=== PATIENT | male | born 1955 | race Caucasian/White ===

== ENCOUNTER → 2018-01-12 | Outpatient (CLI) | payer OTHER ==
[~2018-01-12] MED LIST: ADJUSTABLE COMM1 MIS; BENZ100 PO; LISI-587 PO; LOSA100T2 PO; MOBI15TA PO; ROBIACUDC PO; TAB-TAB PO; TRAM50TA PO; WALKER WHEELS/F1 MIS
[2018-01-12 09:35] LABS: HEMATOCRIT 42.8 % (39.0-51.0); HEMOGLOBIN 14.4 GM/DL (13.0-17.0); MEAN CELL VOLUME 91.9 FL (80.0-100.0); MEAN CORPUSCULAR HGB CONC 33.7 % (32.0-36.0); MEAN PLATELET VOLUME 8.8 FL (7.0-11.0); PLATELET COUNT 277 TH/MM3 (150-450); RED BLOOD COUNT 4.65 MIL/MM3 (4.50-5.90); RED CELL DISTRIBUTION WIDTH 13.7 % (11.6-17.2); WHITE BLOOD COUNT 7.7 TH/MM3 (4.0-11.0)
[2018-01-12 10:03] LABS: BILIRUBIN, URINE NEG (NEG); BLOOD, URINE NEG (NEG); GLUCOSE,URINE NEG (NEG); KETONE, URINE NEG (NEG); MUCUS URINE FEW /lpf (OCC); NITRITE,URINE NEG (NEG); SQUAMOUS EPITHELIAL CELL URINE <1 /hpf (0-5); URINE COLOR YELLOW (YELLW/STRAW); URINE LEUKOCYTE ESTERASE NEG (NEG)
[2018-01-12 12:06] LABS: ALBUMIN 3.8 GM/DL (3.4-5.0); AST (GOT) 17 U/L (15-37); BLOOD UREA NITROGEN 17 MG/DL (7-18); CHLORIDE 105 MEQ/L (98-107); CREATININE 1.15 MG/DL (0.60-1.30); GLOMERULAR FILTRATION RATE 65 ML/MIN (>89); SODIUM (NA) 141 MEQ/L (136-145)
[2018-01-12 12:53] LABS: ALKALINE PHOSPHATASE 81 U/L (45-117); ALT (GPT) 39 U/L (12-78); BICARBONATE 25.5 MEQ/L (21.0-32.0); GLUCOSE,FASTING 105 MG/DL (74-99); TOTAL BILIRUBIN ADULT 0.5 MG/DL (0.2-1.0); TOTAL PROTEIN 7.4 GM/DL (6.4-8.2)
--- NOTE | 2018-01-12 16:17 | EKG ---
Date Performed: 01/12/2018 Time Performed: 08:16:00 PTAGE: 62 years EKG: Sinus rhythm NORMAL ECG NO PREVIOUS TRACING DOCTOR: Robbie Juares Interpretating Date/Time 01/12/2018 16:16:28
== END ==
LOC: CPRE 07:53
PROVIDERS: ATTEND Surgery
DX: Z01.812 Encounter for preprocedural laboratory examination (principal); Z01.810 Encounter for preprocedural cardiovascular examination; M79.609 Pain in unspecified limb
CPT/HCPCS: 36415; 80053; 81001; 85027; 85610; 85730; 93005

== ENCOUNTER 2018-01-18 06:14 | Inpatient (IN) | payer OTHER ==
--- NOTE | 2018-01-12 10:23 | MH ---
cc: Colleen Beckham MD DATE OF ADMISSION: 01/18/2018 ADMITTING DIAGNOSIS: Osteoarthritic degeneration left hip now being admitted for left total hip arthroplasty. HISTORY OF PRESENT ILLNESS: This pleasant 62-year-old male is being admitted today for left total hip arthroplasty due to severe painful osteoarthritic degeneration, left hip. OTHER PAST HISTORY: He has a history of having a right total hip in the past with [employer] components. He has a history of hypertension, anxiety. MEDICATIONS: He currently takes metoprolol and tramadol for pain and Mobic, which stopped before surgery. REVIEW OF SYSTEMS: Noncontributory. FAMILY HISTORY: Noncontributory. SOCIAL HISTORY: He does not smoke and drinks alcohol occasionally. ALLERGIES: HE HAS NO KNOWN ALLERGIES. PHYSICAL EXAMINATION: We find a 62-year-old male Well-developed, well-nourished, oriented x 3 complaining of pain in his left hip. VITAL SIGNS: Blood pressure 140/82, pulse 99 and regular, respirations 18, temperature 98.3, pulse oximetry 97% on room air. HEENT: Eyes, PERRLA, EOMI. Ears, nose, mouth clear. NECK: Supple. LUNGS: Clear. HEART: Regular rate. ABDOMEN: Soft, positive bowel sounds, nontender. EXTREMITIES: Reveals his left hip to have decreased range of motion. He is neurovascularly intact to his toes. IMPRESSION: Severe painful osteoarthritic degeneration, left hip. PLAN: Admission for left total hip arthroplasty today. The patient given a prescription for postoperative pain and anticoagulation control in the office, plans on going home after a surgical stay in the hospital. JEunice Beckham MD JRR/DL , 10:12 AM , 10:22 AM
[~2018-01-18] VITALS: Ht 190.5 cm; Wt 129.3 kg
[~2018-01-18 06:14] MED LIST changes: -ADJUSTABLE COMM1 MIS; -BENZ100 PO; -LISI-587 PO; -ROBIACUDC PO; -TAB-TAB PO; -WALKER WHEELS/F1 MIS
[2018-01-18] MEDS ORDERED: SODIUM CHLORID 0.9% 500 ML IV PRN (07:00)
[2018-01-18] MEDS ORDERED: ceFAZolin 2 GM PREMIX 50 ML IV SCH (07:00)
[2018-01-18] MEDS ORDERED: VANCOMYCIN 1000 MG/NS 250 ML (for <70 kg) IV SCH ×2 (07:00)
[2018-01-18] MEDS ORDERED: LACTATED RINGER'S 1000 ML IV PRN (07:00)
[2018-01-18] MEDS ORDERED: CHLORHEXIDINE GLUCONATE 4% SOLN 120 ML BTL TOPICAL SCH (07:00)
[2018-01-18] MEDS ORDERED: POVIDONE IODINE 5% (ANTISEPSIS KIT) 4 APPLICATIONS EACH NARE PRN (07:00)
[2018-01-18] MEDS ORDERED: CHLORHEXIDINE GLUCONATE 2 % 1 PACK (2 CLOTHS) TOPICAL PRN (07:00)
[2018-01-18] MEDS ORDERED: METOPROLOL TARTRATE 25 MG TAB PO PRN (07:00)
[2018-01-18] MEDS ORDERED: BUPIVACAINE PF 0.75% DEX-WATER INJ 2 ML AMP ONE (07:12)
[2018-01-18] MEDS ORDERED: ceFAZolin INJ 1,000 MG VIAL ONE (07:16)
[2018-01-18] MEDS ORDERED: EXPAREL PERI-ARTICULAR INJECTION (TOTAL VOL. 100 ML) P-ARTICULR SCH ×2 (08:30)
[2018-01-18] MEDS ORDERED: TRANEXAMIC ACID INJ 1,290 MG in SODIUM CHLORIDE 0.9% INJ 100 ML IV SCH ×2 (08:30→11:30)
--- NOTE | 2018-01-18 08:51 | HHI.FF ---
Face to Face Verification Diagnosis: (1) Status post total replacement of left hip Physical Therapy Gait training Hip: Total hip, Protocol: Left, Posterior hip precautions, Abduction pillow while in bed, Progress to weight bearing Canvas Knee Splint: When in bed & 2 pillows btw thighs Nursing RN: 3 days/week x 2 weeks Dressing Changes: Do not change dressing I have seen patient Pako Leon on 01/18/18. My clinical findings support the need for the requested home health care services because: Limited ability to care for self High risk of falls I certify that my clinical findings support that this patient is homebound because: Unsteady gait/balance Colleen Beckham MD Jan 18, 2018 08:51
[2018-01-18] MEDS ORDERED: ADJUSTABLE COMM1 MIS (08:52)
[2018-01-18] MEDS ORDERED: WALKER WHEELS/F1 MIS (08:52)
[2018-01-18] MEDS ORDERED: ACETAMINOPHEN/HYDROcodone 325 MG/7.5 MG TAB PO PRN (09:00)
[2018-01-18] MEDS ORDERED: BUPIVACAINE LIPOSO PF 1.3% INJ 20 ML, BUPIVACAINE PF 0.25% INJ 20 ML in SODIUM CHLORIDE... P-ARTICULR SCH (09:00)
[2018-01-18] MEDS ORDERED: NURSING INFORMATION XX PRN (09:00)
[2018-01-18] MEDS ORDERED: MORPHINE SULFATE 8 MG/ML INJ IV PUSH PRN (09:00)
[2018-01-18] MEDS ORDERED: Post-op Orders (for Pharmacy) XX ONE (09:00)
[2018-01-18] MEDS ORDERED: NON-FORMULARY DRUG (Losartan-Hydrochlorothiazide 1 TAB) PO SCH (09:00)
[2018-01-18] MEDS ORDERED: ACETAMINOPHEN 325 MG TAB PO PRN (09:00)
[2018-01-18] MEDS ORDERED: TRANEXAMIC ACID INJ 0 MG in SODIUM CHLORIDE 0.9% INJ 100 ML IV SCH (09:00)
[2018-01-18] MEDS ORDERED: NALOXONE HCL 0.4 MG/ML AMP IV PUSH PRN (09:00)
[2018-01-18] MEDS ORDERED: MAGNESIUM HYDROXIDE SUSP 30 ML CUP PO PRN (09:00)
[2018-01-18] MEDS ORDERED: BISACODYL 10 MG SUPP RECTAL PRN (09:00)
[2018-01-18] MEDS ORDERED: BUPIVACAINE HCL PF 0.25% 30 ML VIAL ONE (09:20)
[2018-01-18] MEDS ORDERED: ONDANSETRON ODT 4 MG TAB PO PRN (10:00)
--- NOTE | 2018-01-18 11:41 | HHI.PR ---
Immediate Post Op Note Procedure Date: Jan 18, 2018 Pre Op Diagnosis: Osteoarthritic degeneration left hip Post Op Diagnosis: Osteoarthritic degeneration left hip Surgeon: Dagmar Beckham MD Meat Department Manager(s): Hafsa CASTILLO Procedure: Left Total Hip Arthroplasty Complications: none Estimated blood loss: 1000cc Anesthesia: General Drains: None IVF Urinary Output (mLs): 0 (no chang) Tourniquet time (min at mmHg) none Patient to: PACU Patient Condition: Good Implant/Devices: SEE IMPLANT LOG (if applicable) Date/Time of Procedure: SEE SURGICAL CARE RECORD Hafsa Mackenzie Jan 18, 2018 11:41
--- NOTE | 2018-01-18 11:43 | MP ---
cc: Colleen Beckham MD DATE OF OPERATION: 01/18/2018 PREOPERATIVE DIAGNOSIS: Osteoarthritic degeneration, left hip. POSTOPERATIVE DIAGNOSIS: Osteoarthritic degeneration, left hip. SURGERY PERFORMED: Left total hip arthroplasty using Aesculap components size 56 cup with a size 15 standard stem, short neck, 32 mm screw and a 36 mm ceramic head. No cement utilized. SURGEON: Colleen Beckham MD SURGERY TEACHER: ANNA Cruz ANESTHESIA: General intubation. PROCEDURE: The patient was brought to the Operating Room, where after successful induction of spinal anesthesia was placed on the operating room table in the right lateral decubitus position. The left hip, thigh and leg were prepped and draped in the usual manner. A posterolateral approach was then utilized by making an incision over the proximal portion of the femur lateral aspect, carried across the greater trochanter, carried posterior in a curved incision toward the buttock. The incision was carried down through the subcutaneous tissue, through the fibers of the tensor fascia akira and gluteus renetta to expose the greater trochanteric bursa. This was then removed by sharp and blunt dissection. The hip was then internally rotated to expose the insertions of the short external rotators of the hip and were incised at their insertion into the greater trochanter and reflected posterior to protect the sciatic nerve. These were held with a Charnley retractor to better visualize the hip joint. The capsule was identified and removed by sharp dissection. The hip was then dislocated by internal rotation and flexion of the hip. The femoral calcar was then measured using the trial components for the appropriate length cut of the neck using an oscillating saw. After the cut was made the head was removed. The acetabulum was then approached and measured, the acetabulum reamed with the acetabular reamers. Next, the femoral calcar was approached by first inserting a canal finder followed by rigid reamers, followed by a cookie-cutter to the appropriate size, in this case being a #15. The broach was left in place and a planer used to plane the calcar to a smooth finish. The broach was then removed. The trial components were then inserted into place, the hip reduced, found to track smoothly with no evidence of subluxation or dislocation. All trial components were removed. The wound was irrigated copiously with antibiotic solution and Water Pik. The actual components were then inserted and impacted into place using Aesculap components size 56 cup with a size 15 standard stem, short neck, 32 mm screw and a 36 mm ceramic head. No cement utilized. The hip was reduced, found to track smoothly with no evidence of subluxation or dislocation. The wound was irrigated copiously with antibiotic solution, meticulous hemostasis achieved. The capsule was then approximated using interrupted #1 Vicryl suture. Deep fascia approximated with running #2 Quill. Subcutaneous tissue approximated using interrupted and running 2-0 and 3-0 Monocryl suture and Prineo dressing, abduction pillow, splint and knee immobilizer. No drain utilized. 80 mL of a mixture Exparel, 0.25% Marcaine plain and normal saline inserted around the hip joint anterior side, staying away from the sciatic nerve, which was protected and kept out of harm's way throughout the entire case. The patient tolerated the procedure well, left the operating room in satisfactory condition. ESTIMATED BLOOD LOSS: 1000 mL. Sponge and suture counts were correct. ANNA Cruz, was present during the entire procedure to include patient positioning and the procedure. The medical necessity of a nurse practitioner as a cable splicer assistant was indicated in this case due to the surgical complexity of the case itself. During the surgical case, the rn neurosurgical was working the back table while my rn neurosurgical, ANNA, was directly assisting me. J. MD MAGDALENA Chang/KASSANDRA , 11:13 AM , 11:41 AM
[2018-01-18 11:59] LABS: AUTOMATED NEUTROPHIL # 12.8 TH/MM3 (1.8-7.7); BASOPHIL % 0.3 % (0.0-2.0); EOSINOPHIL # 0.1 TH/MM3 (0-0.4); EOSINOPHIL % 0.4 % (0.0-4.0); HEMATOCRIT 38.7 % (39.0-51.0); HEMOGLOBIN 12.7 GM/DL (13.0-17.0); LYMPH % 8.4 % (9.0-44.0); LYMPHOCYTE # 1.2 TH/MM3 (1.0-4.8); MEAN CELL VOLUME 93.5 FL (80.0-100.0); MEAN CORPUSCULAR HEMOGLOBIN 30.6 PG (27.0-34.0); MEAN CORPUSCULAR HGB CONC 32.7 % (32.0-36.0); MEAN PLATELET VOLUME 8.6 FL (7.0-11.0); MONO % 2.9 % (0.0-8.0); MONOCYTE # 0.4 TH/MM3 (0-0.9); PLATELET COUNT 273 TH/MM3 (150-450); RED BLOOD COUNT 4.14 MIL/MM3 (4.50-5.90); WHITE BLOOD COUNT 14.5 TH/MM3 (4.0-11.0)
[2018-01-18] MEDS ORDERED: DEXAMETHASONE SOD PHOS 4 MG/ML VIAL IV ONE (12:00)
[2018-01-18] MEDS ORDERED: VECURONIUM BROMIDE 20 MG VIAL IV ONE (12:00)
[2018-01-18] MEDS ORDERED: ePHEDrine/NS 25 MG/5 ML SYRINGE IV ONE (12:00)
[2018-01-18] MEDS ORDERED: LACTATED RINGER'S 1000 ML INJ 3,000 ML IV ONE (12:00)
[2018-01-18] MEDS ORDERED: ROCURONIUM INJ 50 MG/5 ML SYRINGE IV PUSH ONE (12:00)
[2018-01-18] MEDS ORDERED: ONDANSETRON HCL 4 MG/2 ML VIAL IV ONE (12:00)
[2018-01-18] MEDS ORDERED: NEOSTIGMINE 5 MG/5 ML SYRINGE IV PUSH ONE (12:00)
[2018-01-18] MEDS ORDERED: PHENYLEPH/NS 1000 MCG/10 ML SYR IV ONE (12:00)
[2018-01-18] MEDS ORDERED: KETOROLAC TROMETHAMINE 30 MG/ML (IVP) VIAL IV PUSH ONE (12:00)
[2018-01-18] MEDS ORDERED: SODIUM CHLORIDE 0.9% 20 ML VIAL IV ONE (12:00)
[2018-01-18] MEDS ORDERED: PROPOFOL 200 MG/20 ML AMP IV ONE (12:00)
[2018-01-18] MEDS ORDERED: GLYCOPYRROLATE 1 MG/5 ML SYRINGE IV PUSH ONE (12:00)
[2018-01-18] MEDS ORDERED: LIDOCAINE HCL 1% PF 5 ML SYRINGE OTHER ONE (12:00)
[2018-01-18] MEDS ORDERED: DO NOT ADM ANY ANTICOAGULANT DRUGS PRN (12:03)
[2018-01-18] MEDS ORDERED: MIDAZOLAM HCL 2 MG/2 ML VIAL ONE (12:09)
--- NOTE | 2018-01-18 12:44 | RADRPT ---
EXAM DATE: 01/18/2018 12:31 PM EDT AGE/SEX: 62 years / Male INDICATIONS: Post op left hip CLINICAL DATA: This is the patient's initial encounter. Patient reports that signs and symptoms have been present for 1 day and indicates a pain score of Nonresponsive. MEDICAL/SURGICAL HISTORY: Non-responsive. . left hip replaced COMPARISON: No prior exams available for comparison. FINDINGS: Single AP view of the left hip following recent arthroplasty demonstrates acetabular and femoral hard cook in place, as expected. There is a single acetabular screw. Mild soft tissue air is present. CONCLUSION: Expected changes following recent left total hip arthroplasty, as above. Electronically signed by: Chriss Andres MD 01/18/2018 12:43 PM EDT
[2018-01-18] MEDS: LACTATED RINGER'S 1000 ML INJ 1,000 ML IV SCH ×2 (13:00→22:30)
[2018-01-18] MEDS ORDERED: *morphine SULFATE 4 MG/ML PERIprocedure ONLY ONE ×2 (13:07→13:20)
[2018-01-18] MEDS: ACETAMINOPHEN/HYDROcodone 325 MG/7.5 MG TAB PO PRN ×3 (14:19→22:38)
[2018-01-18 16:00] VITALS: BP 115/59; PULSE 106; RESP 18; TEMP 98.3; O2SAT 99
[2018-01-18 19:25] VITALS: BP 131/70; PULSE 108; RESP 20; TEMP 97.8; O2SAT 97
[2018-01-18 23:32] VITALS: BP 131/60; PULSE 73; RESP 18; TEMP 98.6; O2SAT 94
[2018-01-19] MEDS: TEMAZEPAM 15 MG CAP PO PRN ×2 (02:34→23:18)
[2018-01-19 03:17] VITALS: BP 117/62; PULSE 95; RESP 18; TEMP 98; O2SAT 96
[2018-01-19] MEDS: ACETAMINOPHEN/HYDROcodone 325 MG/7.5 MG TAB PO PRN ×5 (05:37→22:16)
[2018-01-19 06:17] LABS: HEMATOCRIT 32.5 % (39.0-51.0); HEMOGLOBIN 10.8 GM/DL (13.0-17.0)
[2018-01-19 08:26] VITALS: BP 130/70; PULSE 78; RESP 18; TEMP 98.1; O2SAT 95
[2018-01-19] MEDS: HYDROCHLOROTHIAZIDE 25 MG TAB PO SCH (08:36)
[2018-01-19] MEDS: LOSARTAN 50 MG TAB PO SCH (08:36)
[2018-01-19] MEDS: LACTATED RINGER'S 1000 ML INJ 1,000 ML IV SCH (11:00)
[2018-01-19] MEDS: APIXABAN 2.5 MG TABLET PO SCH ×2 (11:00→21:38)
--- NOTE | 2018-01-19 11:18 | PD.ORT.PN ---
Subjective Subjective Remarks Pt comfortable without complaints. Objective Vitals Vital Signs Date Time Temp Pulse Resp B/P (MAP) Pulse Ox O2 Delivery O2 Flow Rate FiO2 01/19/18 08:26 98.1 78 18 130/70 (90) 95 01/19/18 03:17 98.0 95 18 117/62 (80) 96 01/19/18 00:00 Room Air 01/18/18 23:32 98.6 73 18 131/60 (83) 94 01/18/18 19:25 97.8 108 20 131/70 (90) 97 01/18/18 16:00 98.3 106 18 115/59 (77) 99 01/18/18 13:30 97.8 70 17 128/66 (86) 98 Nasal Cannula 2 01/18/18 13:15 72 17 126/68 (87) 97 Nasal Cannula 2 01/18/18 13:00 66 17 124/78 (93) 98 Nasal Cannula 2 01/18/18 12:45 68 17 127/72 (90) 98 Nasal Cannula 3 01/18/18 12:30 65 17 134/60 (84) 100 Nasal Cannula 3 01/18/18 12:15 60 17 115/58 (77) 100 Nasal Cannula 3 01/18/18 11:54 97.6 79 17 126/60 (82) 100 Simple Mask 6 I/O 01/18/18 01/18/18 01/18/18 01/19/18 01/19/18 01/19/18 07:00 15:00 23:00 07:00 15:00 23:00 Intake Total 2800 ml 1414 ml Output Total 1125 ml Balance 1675 ml 1414 ml Intake Oral 480 ml IV Total 934 ml Other 2800 ml Output Urine Total 125 ml Estimated Blood Loss 1000 ml # Voids 1 6 # Bowel Movements 0 Result Diagram: 01/19/18 0534 Imaging Last 48 hours Impressions Hip X-Ray 01/18/18 0847 Signed Impressions: CONCLUSION: Expected changes following recent left total hip arthroplasty, as above. Objective Remarks In bed at present. NV intact to toes. Dressing dry and intact. Assessment & Plan Ortho Post Op Day #: 1 Problem List: Assessment and Plan Cont PT, home tonight or AM Colleen Beckham MD Jan 19, 2018 11:18
[2018-01-19 12:00] VITALS: BP 106/53; PULSE 104; RESP 18; TEMP 98.2; O2SAT 95
[2018-01-19 16:00] VITALS: BP 108/55; PULSE 95; RESP 18; TEMP 98.2; O2SAT 94
[2018-01-19 20:00] VITALS: BP 119/58; PULSE 105; RESP 17; TEMP 98.9; O2SAT 96
[2018-01-19] MEDS: MULTIVITAMINS/MINERALS THERAPEUTIC TAB PO SCH (21:38)
[2018-01-19] MEDS: DOCUSATE SODIUM 100 MG CAP PO SCH (21:38)
[2018-01-20] VITALS: BP 115/61; PULSE 92; RESP 16; TEMP 98.2; O2SAT 96
[2018-01-20] MEDS: ACETAMINOPHEN/HYDROcodone 325 MG/7.5 MG TAB PO PRN ×2 (02:47→07:09)
[2018-01-20 04:00] VITALS: BP 139/77; PULSE 92; RESP 16; TEMP 98.3; O2SAT 96
[2018-01-20 04:32] LABS: HEMATOCRIT 31.4 % (39.0-51.0); HEMOGLOBIN 10.6 GM/DL (13.0-17.0)
[2018-01-20] MEDS: MULTIVITAMINS/MINERALS THERAPEUTIC TAB PO SCH (07:57)
[2018-01-20] MEDS: LOSARTAN 50 MG TAB PO SCH (07:57)
[2018-01-20] MEDS: HYDROCHLOROTHIAZIDE 25 MG TAB PO SCH (07:57)
[2018-01-20] MEDS: APIXABAN 2.5 MG TABLET PO SCH (07:58)
[2018-01-20] MEDS: DOCUSATE SODIUM 100 MG CAP PO SCH (07:58)
[2018-01-20 08:00] VITALS: BP 110/57; PULSE 87; RESP 18; TEMP 98.3; O2SAT 98
== END 2018-01-20 09:55 | disposition home health service (06) | DRG 470 ==
LOC: HSDI 06:14 → N06A 13:49
PROVIDERS: ADMIT Surgery; ATTEND Surgery
PROC: 0SRB03A Replacement of Left Hip Joint with Ceramic Synthetic Substitute, Uncemented, Open Approach (ICD-10-PCS; principal; 2018-01-18 08:42)
DX: M16.12 Unilateral primary osteoarthritis, left hip (principal); Z96.641 Presence of right artificial hip joint; I10 Essential (primary) hypertension; F41.9 Anxiety disorder, unspecified
CPT/HCPCS: 73501; 85014; 85018; 85025; 86850; 86900; 86901; 86920; 94150; C1776; C9290; J0690; J1100; J1885; J2250; J2270; J2370; J2405; J2710; J3010; J3370; J7050; J7120; L1830